=== PATIENT | male | born 1950 | race Caucasian/White ===

== ENCOUNTER 2020-06-27 18:38 | Emergency (ER) | payer MEDICARE ==
[~2020-06-27] VITALS: Ht 188 cm; Wt 100.2 kg
[~2020-06-27 18:38] MED LIST: ASPI-515 PO; ATOR40TA78 PO; HYDROCONE PO; INSU100I11 SQ-INSULIN; INSU100I13 SQ-INSULIN; INSU100V13 SQ; INSU100V8 SQ; INSULIN; LANTUS; LISI-170 PO; LISI5TAB7 BC; LISI5TAB7 PO; METF100010 PO; METF850T10 PO; OXYC-302 PO; SIMV20TA19 PO; ZOLP10TA5 PO; gabapentin
--- NOTE | 2020-06-27 18:47 | NUR ---
SPA TECHNICIAN: CSPINE PRECAUTIONS IN PLACE.
[2020-06-27] MEDS ORDERED: ACETAMINOPHEN 500 MG TABLET ONE (19:18)
[2020-06-27] MEDS ORDERED: ACETAMINOPHEN 500 MG TABLET PO ONE (19:30)
[2020-06-27 20:18] VITALS: BP 199/91
--- NOTE | 2020-06-27 20:18 | NUR ---
Discharge instructions given. All questions and concerns addressed. Patient ambulatory with a steady gait. Belongings with patient. Patient's is hypertensive; ERP aware. Patient has an appt with primary care this week. Patient states he stopped HTN meds on his own. Patient educated on meds and advised to keep his appt with primary care.
== END 2020-06-27 20:29 | disposition home or self-care (01) ==
LOC: ED 20:23
DX: S16.1XXA Strain of muscle, fascia and tendon at neck level, initial encounter (principal); S09.90XA Unspecified injury of head, initial encounter; E11.9 Type 2 diabetes mellitus without complications; I10 Essential (primary) hypertension; V49.49XA Driver injured in collision with other motor vehicles in traffic accident, initial encounter; Y93.89 Activity, other specified; Y92.410 Unspecified street and highway as the place of occurrence of the external cause; Y99.8 Other external cause status
CPT/HCPCS: 70450; 72125; 99285